=== PATIENT | male | born 1950 | race African-American/Black ===

== ENCOUNTER → 2017-05-31 | Outpatient (CLI) | payer BC ==
[~2017-05-31] MED LIST: ALFU1TAB2 PO; ALLO100T PO; ATOR10TA88 PO; HYDR25TA4 PO; LISI40TA PO; NXM/40 PO; OLOP0.6S NAE; OMEG12006 PO; ranitidine PO
[2017-05-31 12:16] LABS: BASO % 0.5 %; BASO ABS # 0.03 K/uL (0-0.2); COMPLETE YES; EOS % 2.3 %; HEMATOCRIT 36.4 % (42-52); IG% 0.2 %; LYMPH % 29.6 %; LYMPH ABS # 1.66 K/uL (1.2-3.4); MEAN CELL VOLUME 81.4 fL (80-100); MEAN CORPUSCULAR HEMOGLOBIN 27.5 pg (25-34); MEAN CORPUSCULAR HGB CONC 33.8 g/dl (32-36); MEAN PLATELET VOLUME 10.9 fL (7.4-10.4); MONO % 6.4 %; PLATELET COUNT 182 K/uL (130-400); RED BLOOD COUNT 4.47 M/uL (4.7-6.1)
[2017-05-31 12:43] LABS: ALT/SGPT 27 U/L (12-78); AST/SGOT 22 U/L (15-37); BLOOD UREA NITROGEN 27 mg/dl (7-18); BUN/CREATININE RATIO 14.1 (10-20); CALCIUM 9.4 mg/dl (8.5-10.1); CARBON DIOXIDE 28 mmol/L (21-32); CHLORIDE 104 mmol/L (98-107); GLUCOSE 86 mg/dl (70-99); POTASSIUM 3.7 mmol/L (3.5-5.1); SODIUM 137 mmol/L (136-145)
[2017-05-31 12:54] LABS: ALB/GLOB RATIO 0.8 (0.9-2); ALKALINE PHOSPHATASE 89 U/L (45-117); CHOLESTEROL 137 mg/dl (0-200); CHOLESTEROL/HDL RATIO 3.3; HDL CHOLESTEROL 42 mg/dl; LDL CHOLESTEROL CALCULATED 72 mg/dl; TRIGLYCERIDES 113 mg/dl (0-150); VERY LOW DENSITY LIPOPROT CALC 23 mg/dl
== END | disposition home or self-care (01) ==
LOC: C.LAB1850 11:04
PROVIDERS: ATTEND Urology
DX: Z00.00 Encounter for general adult medical examination without abnormal findings (principal); D86.9 Sarcoidosis, unspecified; M10.9 Gout, unspecified; D64.9 Anemia, unspecified; I12.9 Hypertensive chronic kidney disease with stage 1 through stage 4 chronic kidney disease, or unspecified chronic kidney disease; N18.9 Chronic kidney disease, unspecified; E55.9 Vitamin D deficiency, unspecified

== ENCOUNTER → 2017-06-23 | Outpatient (CLI) | payer BC | END | disposition home or self-care (01) | LOC: C.LAB1850 16:31 | PROVIDERS: ATTEND Urology | DX: N40.1 Benign prostatic hyperplasia with lower urinary tract symptoms (principal); R35.1 Nocturia ==

== ENCOUNTER 2020-06-12 13:19 | Inpatient (IN) ==
[2020-06-12] MEDS ORDERED: SODIUM CHLORIDE 0.9% 250 ML IV PRN ×4 (14:37→23:43)
--- NOTE | 2020-06-12 14:42 | Emergency Department Note ---
Impression & Plan SOB (shortness of breath), Anemia, Weakness ED Provider Note NAME: ANA ROSA COMER AGE: 70 SEX: M : 1950 ARRIVES VIA: Walk-In INFORMANT: [Patient] ED PROVIDER(S): [Valentino Rodriguez MD] CHIEF COMPLAINT: Weakness, anemia HISTORY OF PRESENT ILLNESS: The patient is a 70-year-old male who has a history of anemia. He has never received a blood transfusion. The reason for the anemia has never been found. He has had bone marrow biopsies, he has had an endoscopy, a colonoscopy and has swallowed a video camera. In the last month, the patient has had increasing fatigue and some shortness of breath. He feels exhausted just taking a shower or walking to his car. He saw his doctor 2 days ago and, blood work was done. He was called and told his hemoglobin was in the range of 6. He was referred to the ED for a blood transfusion. The patient denies chest pain or fever. No abdominal pain. He has not had black stool. He is willing to receive blood if his counts are really that low. REVIEW OF SYSTEMS: See HPI for pertinent positives and negatives. A total of ten systems were reviewed and were otherwise negative. PMHx/PSHx: See Below SOCIAL HISTORY: See Below. PHYSICAL EXAM: GENERAL: Patient is in no acute distress. HEENT: No acute trauma, normocephalic atraumatic, mucous membranes moist, no nasal congestion, no scleral icterus. NECK: No stridor, no adenopathy, no meningismus, trachea is midline. LUNGS: Clear to auscultation bilaterally, no wheeze, no rhonchi, breath sounds equal. HEART: Mildly tachycardic, regular rhythm, no murmurs. ABDOMEN: Soft, nontender, bowel sounds positive, no hernias, no peritonitis. EXTREMITIES: No cyanosis or edema, full range of motion of all the joints without pain or difficulty, no signs for acute trauma. NEUROLOGIC: Oriented x 3, no acute motor or sensory deficits, no focal weakness. SKIN: No rash, no jaundice, no diaphoresis. Rectal: Brown stool, heme-negative. DIFFERENTIAL DIAGNOSIS: Infection, dehydration, metabolic abnormality, hypo/hyperglycemia, electrolyte disturbance, anemia, hypoxia, cardiac sources, intracerebral event, toxicologic, neurologic, as well as other pathologies. EMERGENCY DEPARTMENT COURSE/PROCEDURES: ECG: Indication is weakness. The ECG shows a normal sinus rhythm with a right bundle branch block. The rate is 92. There is no ST elevation, no PVCs. The QTc is 504. Continuous Cardiac Monitoring: An order was placed for continuous cardiac monitoring. The monitor shows a rate of 88 with normal sinus rhythm. Critical Care Note: I have personally spent greater than 36 minutes of critical care time in the direct management of this patient. This includes bedside care, interpretation of diagnostic studies, and testing, discussion with consultants, patient, and family members, and other required patient management activities. This 36 minutes is in excess of all separately billable procedures. MEDICAL DECISION MAKING: There is a lower white blood cell count, this has been a chronic issue though for the patient. Hemoglobin was quite low at 6.4, this is lower than he has really ever been. There was a normal platelet count. Renal panel testing shows some renal insufficiency with a creatinine of 2.15. This is slightly above the patient's baseline. No significant electrolyte abnormality in need of emergent correction. No worrisome liver enzyme elevation. Urinalysis does not show infection. Chest film does not show pneumonia or CHF. ECG shows a sinus rhythm, no acute ischemia. Cardiac enzyme testing x1 is not consistent with acute cardiac injury. Rectal exam done at bedside showed brown stool, the stool was heme-negative. Patient presents with fatigue and shortness of breath. He is quite anemic. He needs packed red blood cells and has agreed to the blood transfusion. The paperwork was completed and signed. I did order for 2 units of packed red blood cells, 1 unit to be infused while here in the ED. I spoke to the patient about his findings. I spoke with case management. The on-call hospitalist was consulted. The cause for his anemia is not clear. During the ED stay, in addition to the packed red blood cells, the patient was given a 500 cc saline bolus. Past Med/Surg History Medical History Anemia Right bundle branch block Sarcoidosis Surgical History H/O colonoscopy S/P foot surgery, right Family History Mother Heart disease Hypertension Nephrolithiasis Father Heart disease Hypertension Other Anemia Denies family history of Colon cancer Ovarian cancer Prostate cancer Myocardial infarction Breast cancer Social History Smoking Status: Never smoker Hx Alcohol Use: No Hx Substance Use: No Preferred Language: Setswana Associate Principal Required: No Beliefs That Will Affect Care: None marital status: / Current Living Situation: Alone current occupational status: employed current occupation: administrative Other Information That Helps Us Care for You: No Feels Safe at Home: Yes Safety Concerns: Feels Safe At This Time Childhood Exposure to Second-Hand Smoke: Yes Dental Care, Regularly: Yes Allergies Allergies Allergy/AdvReac Type Severity Reaction Status Date / Time tramadol AdvReac Unknown severe Verified 04/09/20 08:52 headache Home Meds Home Medications Medication Instructions Recorded Confirmed allopurinol 100 mg tablet 100 mg PO DAILY #30 tab 03/19/19 04/29/20 cholecalciferol (vitamin D3) 25 1,000 units PO DAILY cap 03/19/19 04/29/20 mcg (1,000 unit) capsule diclofenac sodium 1 % topical gel TOPICAL .apply 4 grams up to #1 gm 04/15/19 04/29/20 azathioprine 50 mg tablet 50 mg PO BID tab 03/11/20 04/29/20 Previous Rx's Medication Instructions Recorded infliximab 100 mg intravenous See Rx Instructions IV .COMPLEX #1 03/19/19 solution ea multivitamin 1 tab PO DAILY #30 tab 03/19/19 omega-3 fatty acids 1,000 mg 1,000 mg PO DAILY #30 cap 03/19/19 capsule sildenafil 50 mg tablet 50 mg PO DAILY PRN #7 tab 03/19/19 vitamin B complex 1 tab PO DAILY #30 tab 03/19/19 hydrochlorothiazide 12.5 mg capsule 25 mg PO DAILY #60 cap 04/22/19 alfuzosin 10 mg tablet,extended 10 mg PO .COMPLEX #90 tab 09/18/19 release 24 hr olopatadine 0.6 % nasal spray 2 sprays INTNAS DAILY #30.5 gm 02/19/20 gabapentin 100 mg capsule 100 mg PO TID #90 cap 03/11/20 atorvastatin 10 mg tablet 10 mg PO DAILY #30 tab 03/16/20 Results & Data (ED) Vital Signs Vital Signs - 24 hr 06/12/20 13:49 06/12/20 14:51 06/12/20 14:52 Temperature 37.3 C Temperature Source Oral Pulse Rate 97 H 89 Pulse Rate [Apical] 95 H Pulse Rate from SpO2 Sensor 89 Respiratory Rate 17 20 21 Respiratory Effort / Characteristics Non-Labored Spontaneous Respiratory Depth Normal Respiratory Pattern Regular Blood Pressure 119/65 140/68 Blood Pressure [Left Arm] 140/68 Blood Pressure Mean 83 96 Blood Pressure Mean [Left Arm] 92 Blood Pressure Position Sitting Pulse Oximetry 100 100 96 Oxygen Delivery Method Room Air Room Air Sepsis Recent Fever Within 48 Hours No Sepsis New/Unexplained Change in Mental Status No Sepsis Action Taken by Nursing No Action Required 06/12/20 15:11 06/12/20 15:30 Temperature Temperature Source Pulse Rate 87 90 Pulse Rate [Apical] Pulse Rate from SpO2 Sensor 88 Respiratory Rate 20 24 Respiratory Effort / Characteristics Respiratory Depth Respiratory Pattern Blood Pressure Blood Pressure [Left Arm] Blood Pressure Mean Blood Pressure Mean [Left Arm] Blood Pressure Position Pulse Oximetry 95 98 Oxygen Delivery Method Sepsis Recent Fever Within 48 Hours Sepsis New/Unexplained Change in Mental Status Sepsis Action Taken by Longterm Medications Current Medication List: was personally reviewed by me Laboratory Data Attestation: I reviewed the patient's lab results. Result diagrams: 06/12/20 14:44 06/12/20 14:44 Lab Results 06/12/20 06/12/20 06/12/20 Range/Units 14:44 14:44 14:44 WBC 2.54 L (4.8-10.8) K/uL RBC 1.91 L (4.7-6.1) M/uL Hgb 6.4 L* (14.0-18.0) g/dL Hct 18.3 L* (42-52) % MCV 95.8 (80-100) fL MCH 33.5 (25-34) pg MCHC 35.0 (32-36) g/dL RDW Std Deviation 59.6 H (36.4-46.3) fL RDW Coeff of Nilam 17.2 H (11.5-14.5) % Plt Count 241 (130-400) K/uL MPV 9.2 (7.4-10.4) fL Reticulocyte % (Auto) < 0.5 L (0.5-2.0) % Reticulocyte # < 0.02 L (0.02-0.10) 10^6/uL Neutrophils % (Manual) 80.9 % Lymphocytes % (Manual) 13.9 % Monocytes % (Manual) 2.6 % Eosinophils % (Manual) 2.6 % Neutrophils # (Manual) 2.05 (1.4-6.5) K/uL Total Absolute Neuts 2.05 (1.4-6.5) K/uL Lymphocytes # (Manual) 0.35 L (1.2-3.4) K/uL Total Abs Lymphocytes 0.35 L (1.2-3.4) K/uL Monocytes # (Manual) 0.07 L (0.11-0.59) K/uL Eosinophils # (Manual) 0.07 (0-0.5) K/uL Dohle Bodies 1+ Giant Platelets 1+ Target Cells 1+ Tear Drop Cells 1+ Ovalocytes 1+ Peripher Smr Path Cons Immature Retic Fraction 9.1 (2.3-13.4) % Retic Hgb Content 29.3 (28.2-36.6) pg Sodium 135 L (136-145) mmol/L Potassium 3.8 (3.5-5.1) mmol/L Chloride 103 (98-107) mmol/L Carbon Dioxide 23 (21-32) mmol/L Anion Gap 10.0 (3-11) BUN 32 H (7-18) mg/dl Creatinine 2.15 H (0.6-1.4) mg/dl Est Cr Clr Drug Dosing 40.5 ml/min Est GFR ( Amer) 34.6 Est GFR (Non-Af Amer) 29.9 BUN/Creatinine Ratio 14.9 (10-20) Glucose 90 (70-99) mg/dl Calcium 9.9 (8.5-10.1) mg/dl Magnesium 1.9 (1.8-2.4) mg/dl Iron (35-175) mcg/dl Transferrin (200-360) mg/dl Transferrin % Sat (20-50) % Total Bilirubin 0.8 (0.2-1) mg/dl AST 15 (15-37) U/L ALT 16 (12-78) U/L Alkaline Phosphatase 84 (45-117) U/L Lactate Dehydrogenase (87-241) U/L Troponin I < 0.015 (0-0.045) ng/ml C-Reactive Protein (0-0.29) mg/dl Total Protein 9.1 H (6.4-8.2) gm/dl Albumin 3.9 (3.4-5.0) gm/dl Globulin 5.2 H (2.5-4.0) gm/dl Albumin/Globulin Ratio 0.8 L (0.9-2) TSH 1.210 (0.300-4.500) uIu/ml Blood Type A Negative Blood Type Recheck Antibody Screen NEGATIVE Crossmatch See Detail 06/12/20 06/12/20 06/12/20 Range/Units 14:44 14:44 15:22 WBC (4.8-10.8) K/uL RBC (4.7-6.1) M/uL Hgb (14.0-18.0) g/dL Hct (42-52) % MCV (80-100) fL MCH (25-34) pg MCHC (32-36) g/dL RDW Std Deviation (36.4-46.3) fL RDW Coeff of Nilam (11.5-14.5) % Plt Count (130-400) K/uL MPV (7.4-10.4) fL Reticulocyte % (Auto) (0.5-2.0) % Reticulocyte # (0.02-0.10) 10^6/uL Neutrophils % (Manual) % Lymphocytes % (Manual) % Monocytes % (Manual) % Eosinophils % (Manual) % Neutrophils # (Manual) (1.4-6.5) K/uL Total Absolute Neuts (1.4-6.5) K/uL Lymphocytes # (Manual) (1.2-3.4) K/uL Total Abs Lymphocytes (1.2-3.4) K/uL Monocytes # (Manual) (0.11-0.59) K/uL Eosinophils # (Manual) (0-0.5) K/uL Dohle Bodies Giant Platelets Target Cells Tear Drop Cells Ovalocytes Peripher Smr Path Cons Immature Retic Fraction (2.3-13.4) % Retic Hgb Content (28.2-36.6) pg Sodium (136-145) mmol/L Potassium (3.5-5.1) mmol/L Chloride (98-107) mmol/L Carbon Dioxide (21-32) mmol/L Anion Gap (3-11) BUN (7-18) mg/dl Creatinine (0.6-1.4) mg/dl Est Cr Clr Drug Dosing ml/min Est GFR ( Amer) Est GFR (Non-Af Amer) BUN/Creatinine Ratio (10-20) Glucose (70-99) mg/dl Calcium (8.5-10.1) mg/dl Magnesium (1.8-2.4) mg/dl Iron 145 (35-175) mcg/dl Transferrin 246 (200-360) mg/dl Transferrin % Sat 42 (20-50) % Total Bilirubin (0.2-1) mg/dl AST (15-37) U/L ALT (12-78) U/L Alkaline Phosphatase (45-117) U/L Lactate Dehydrogenase 246 H (87-241) U/L Troponin I (0-0.045) ng/ml C-Reactive Protein 1.65 H (0-0.29) mg/dl Total Protein (6.4-8.2) gm/dl Albumin (3.4-5.0) gm/dl Globulin (2.5-4.0) gm/dl Albumin/Globulin Ratio (0.9-2) TSH (0.300-4.500) uIu/ml Blood Type Blood Type Recheck A Negative Antibody Screen Crossmatch Administered Medications Discontinued Medications Sodium Chloride (Nss) 500 mls @ 999 mls/hr IV .Q31M MARY Stop: 06/12/20 15:15 Last Infusion: 06/12/20 15:39 Dose: 0 mls/hr Documented by: [id number] Admin: 06/12/20 14:53 Dose: 999 mls/hr Documented by: [id number] Imaging Data Radiologist's Impression: XR chest 1V portable CLINICAL HISTORY: weakness COMPARISON STUDY: 12/02/2010 FINDINGS: The heart is at the upper limits of normal in size. There is stable bilateral hilar prominence. There is stable upper lung zone fibronodular opacities. There is no acute parenchymal consolidation. There are no pleural e ffusions.[ IMPRESSION: Stable hilar enlargement and upper lung zone predominant fibronodular opacities. No acute findings. Blood Pressure Blood Pressure Findings: Elevated blood pressure Blood Pressure Disposition: further management by hospitalist Discharge Plan Visit Data Chief Complaint: Abnormal Labs/Diagnostic Testing Stated Complaint: REF BY [facility] ED Provider: Valentino Rodriguez Discharge Problem: SOB (shortness of breath), Anemia, Weakness Patient Disposition: Admitted As Inpatient Condition: Good Discharge Instructions Interventions: ED Discharge Assessment Last Done: 06/12/20 16:58 Discharge Problem: Anemia Qualifiers: Anemia type: unspecified type Qualified Code(s): D64.9 - Anemia, unspecified
[2020-06-12] MEDS ORDERED: SODIUM CHLORIDE 0.9% 500 ML IV SCH (14:45)
[2020-06-12 15:16] LABS: Alanine Aminotransferase 16 U/L (12-78); Albumin Level 3.9 gm/dl (3.4-5.0); Aspartate Aminotransferase 15 U/L (15-37); BUN Creatinine Ratio 14.9 (10-20); Blood Urea Nitrogen 32 mg/dl (7-18); Calcium 9.9 mg/dl (8.5-10.1); Carbon Dioxide 23 mmol/L (21-32); Chloride 103 mmol/L (98-107); Creatinine Clr Calc Pharmacy 40.5 ml/min; Est GFR (African American) 34.6; Est GFR (Non-African American) 29.9; Glucose 90 mg/dl (70-99); Hematocrit (blood only) 18.3 % (42-52); Hemoglobin 6.4 g/dL (14.0-18.0); Magnesium 1.9 mg/dl (1.8-2.4); Mean Corpuscular Hemoglobin 33.5 pg (25-34); Mean Corpuscular Volume 95.8 fL (80-100); Mean Platelet Volume 9.2 fL (7.4-10.4); Platelet Count 241 K/uL (130-400); Potassium 3.8 mmol/L (3.5-5.1); RDW Coefficient of Variation 17.2 % (11.5-14.5); RDW Standard Deviation 59.6 fL (36.4-46.3); Red Blood Count 1.91 M/uL (4.7-6.1); Sodium 135 mmol/L (136-145); White Blood Count 2.54 K/uL (4.8-10.8)
--- NOTE | 2020-06-12 15:21 | XRay Report ---
XR chest 1V portable CLINICAL HISTORY: weakness COMPARISON STUDY: 12/02/2010 FINDINGS: The heart is at the upper limits of normal in size. There is stable bilateral hilar promine nce. There is stable upper lung zone fibronodular opacities. There is no acute parenchymal consolidat ion. There are no pleural effusions.[ IMPRESSION: Stable hilar enlargement and upper lung zone predominant fibronodular opacities. No acute findings. ACT 112: Negative or not required by law. Electronically signed by: Gavin Valerio M.D. 06/12/2020 3:20 PM
[2020-06-12 15:27] LABS: Albumin Globulin Ratio 0.8 (0.9-2); Alkaline Phosphatase 84 U/L (45-117); Bilirubin,Total 0.8 mg/dl (0.2-1); Globulin 5.2 gm/dl (2.5-4.0); Total Protein 9.1 gm/dl (6.4-8.2); Troponin I < 0.015 ng/ml (0-0.045)
[2020-06-12 15:37] LABS: ALC (manual) 0.35 K/uL (1.2-3.4); ANC (manual) 2.05 K/uL (1.4-6.5); Dohle Bodies 1+; Eosinophils # (manual) 0.07 K/uL (0-0.5); Eosinophils % (manual) 2.6 %; Giant Platelets 1+; Lymphocytes # (manual) 0.35 K/uL (1.2-3.4); Lymphocytes % (manual) 13.9 %; Monocytes # (manual) 0.07 K/uL (0.11-0.59); Monocytes % (manual) 2.6 %; Neutrophils # (manual) 2.05 K/uL (1.4-6.5); Neutrophils % (manual) 80.9 %; Ovalocytes 1+; Target Cells 1+; Tear Drop Cells 1+
--- NOTE | 2020-06-12 15:56 | History & Physical Report ---
Date of Service June 12, 2020 Assessment & Plan (1) Symptomatic anemia: Previously extensively worked up including bone marrow biopsy under Dr Fraser. Normal EGD/colonoscopy/capsule endoscopy. Only recent change in medication has been adding vitamin D and potassium 3 months previously - no significant change in his calcium due to this with his sarcoidosis. No change in his allopurinol + azathioprine from Oct 2018 however would still favor this this combination causing bone marrow suppression since his reticulocyte count is so low. Hold azathioprine pending heme consult. Given his worsening creatinine without any specific etiology for his CKD and elevated total serum protein will run SPEP/UPEP/FLC/Immunofixation for myeloma workup. Transfuse 1 unit PRBC and repeat CBC - delayed getting transfusion as requires to be washed due to selective IgA def. Consult hematology. 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 (8) Gout: Questionable one off episode of this in 2010 after orthopedic surgery to the same area. No joint fluid confirmation as per patient recollection. On allopurinol since then. (9) Benign prostatic hyperplasia: PCP follow up. Admission and Anticipated Discharge Date Admission Date: 06/12/2020 History of Present Illness Chief Complaint: Symptomatic anemia Primary Care Provider: Stephan Small DO Sriram Lau is a 70 year old male who presents to the ER with progressively increasing shortness of breath and fatigue increasing over the last month. He saw his PCP 2 days previously and performed outpatient labs showing Hgb 6.4 today. Therefore referred to the ER for further workup. He reports no acute change in his symptoms over the last week. No chest pain, melena, bright red blood in stool. Prior workup under Dr Fraser for his anemia including EGD, colonoscopy, capsule endoscopy, bone marrow biopsy without a specific diagnosis. His anemia spontaneously improved without a blood transfusion although it has never been this low. His reticulocyte count was low previously and he takes azathioprine and allopurinol however his intermittent anemia started prior to him starting the azathioprine. 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 Recent change burst of gabapentin for right sided ulnar neuropathy at this elbow which did not help - plans to follow up with orthopedics regarding this. No known interaction with azathioprine. He was also recently started on Vitamin D and potassium for the last 3 months. He has an selective IgA deficiency therefore requires washed packed RBC transfusion. Allergies Allergy/AdvReac Type Severity Reaction Status Date / Time tramadol AdvReac Unknown severe Verified 04/09/20 08:52 headache Home Medications Home Medications Medication Instructions Recorded Confirmed Type allopurinol 100 mg tablet 100 mg PO DAILY #30 tab 03/19/19 04/29/20 History cholecalciferol (vitamin D3) 25 1,000 units PO DAILY cap 03/19/19 04/29/20 History mcg (1,000 unit) capsule infliximab 100 mg intravenous See Rx Instructions IV .COMPLEX #1 03/19/19 04/29/20 Rx solution ea multivitamin 1 tab PO DAILY #30 tab 03/19/19 04/29/20 Rx omega-3 fatty acids 1,000 mg 1,000 mg PO DAILY #30 cap 03/19/19 04/29/20 Rx capsule sildenafil 50 mg tablet 50 mg PO DAILY PRN #7 tab 03/19/19 04/29/20 Rx vitamin B complex 1 tab PO DAILY #30 tab 03/19/19 04/29/20 Rx diclofenac sodium 1 % topical gel TOPICAL .apply 4 grams up to #1 gm 04/15/19 04/29/20 History hydrochlorothiazide 12.5 mg capsule 25 mg PO DAILY #60 cap 04/22/19 04/29/20 Rx alfuzosin 10 mg tablet,extended 10 mg PO .COMPLEX #90 tab 09/18/19 04/29/20 Rx release 24 hr olopatadine 0.6 % nasal spray 2 sprays INTNAS DAILY #30.5 gm 02/19/20 04/29/20 Rx azathioprine 50 mg tablet 50 mg PO BID tab 03/11/20 04/29/20 History atorvastatin 10 mg tablet 10 mg PO DAILY #30 tab 03/16/20 04/29/20 Rx amlodipine [Norvasc] 5 mg PO QAM #30 tab 06/13/20 Rx lisinopril [Zestril] 40 mg PO QAM #30 tab 06/13/20 Rx potassium chloride [Klor-Con M10] 10 meq PO DAILY #30 tab 06/13/20 Rx Past Med/Surg History Medical History Anemia Right bundle branch block Sarcoidosis Surgical History H/O colonoscopy S/P foot surgery, right Family History Mother Heart disease Hypertension Nephrolithiasis Father Heart disease Hypertension Other Anemia Denies family history of Colon cancer Ovarian cancer Prostate cancer Myocardial infarction Breast cancer Social History Smoking Status: Never smoker Hx Alcohol Use: No Hx Substance Use: No Preferred Language: Peruvian Pediatric Medical Assistant Required: No Beliefs That Will Affect Care: None marital status: / Current Living Situation: Alone current occupational status: employed current occupation: administrative Other Information That Helps Us Care for You: No Feels Safe at Home: Yes Safety Concerns: Feels Safe At This Time Childhood Exposure to Second-Hand Smoke: Yes Dental Care, Regularly: Yes Review of Systems Review of Systems: All systems reviewed & are unremarkable except as noted in HPI & below Musculoskeletal: notied increasing ulnar neuropathy on right arm likely related to Physical Exam Constitutional: WD/WN, vitals as above + obese Eyes: PERRL, conjunctivae normal, anicteric sclerae ENMT: external ear and nose normal, oropharynx normal Neck: trachea midline, no thyromegaly Respiratory: normal respiratory effort, lungs clear to auscultation Cardiovascular: RRR, no murmur, no edema Gastrointestinal (Abdomen): normal bowel sounds, soft, nontender, no hepatosplenomegaly Musculoskeletal: no cyanosis or clubbing, extremities motor strength 5/5 Positive tinel test on right side Skin: no rashes, warm and dry Neurologic: moves all extremities and awake; no focal motor deficits and not confused Psychiatric: A+Ox3, euthymic affect Genitourinary: no CVA tenderness Lymphatic: no cervical or axillary lymphadenopathy Results & Data Results & Data ([facility]) Vital Signs (Past 12 Hours) Vital Signs Temp Pulse Pulse Resp BP BP Pulse Ox 06/12/20 14:51 95 H 20 140/68 100 06/12/20 13:49 37.3 C 97 H 17 119/65 100 Diagnostic Findings XR chest 1V portable IMPRESSION: Stable hilar enlargement and upper lung zone predominant fibronodular opacities. No acute findings. ECG Rate (beats per minute): 92 Rhythm: normal sinus Findings: + RBBB (not new) Comparison ECG Date: from (March 18, 2003) Change: no significant change Code Status & VTE Plan VTE Prophylaxis Plan VTE Prophylaxis will be ordered: Yes PG Care Time/CCT Total # of Minutes Spent Total Time Spent: 85 Total Time Spent with Patient: Total time spent is greater than 50% in coordination of care (as documented) at patient's floor/unit and/or counseling patient: Coding Level of Care Code 84826 Initial Inpt Care Lvl 3 Diagnoses Symptomatic anemia D64.9 Sarcoidosis D86.9 Right bundle branch block I45.10 Elevated serum protein level R77.9 IgA deficiency, selective D80.2 Gastroesophageal reflux disease K21.9 Ulnar nerve entrapment at elbow G56.20 Gout M10.9 Benign prostatic hyperplasia N40.0
[2020-06-12 16:10] LABS: Immature Retic Fraction 9.1 % (2.3-13.4); Reticulated Hemoglobin 29.3 pg (28.2-36.6); Reticulocyte % < 0.5 % (0.5-2.0); Reticulocytes # < 0.02 10^6/uL (0.02-0.10)
[2020-06-12 16:33] LABS: C Reactive Protein 1.65 mg/dl (0-0.29)
[2020-06-12 16:50] LABS: Appearance Urine Clear (Clear); Bilirubin Urine Negative (Negative); Blood Urine Negative (Negative); Color Urine Yellow; Glucose Urine UA Negative (Negative); Ketones Urine Negative (Negative); Leukocyte Esterase Urine Negative (Negative); Nitrite Urine Negative (Negative); Protein Urine Negative (Negative); Specific Gravity Urine 1.011 (1.000-1.030); Urobilinogen Urine Negative (Negative); pH Urine 5.5 (4.5-7.5)
[2020-06-12 17:03] LABS: Folate (Folic Acid) 11.53 ng/ml (>5.38)
[2020-06-12 19:43] LABS: Creatinine Urine Random 85.2 mg/dl; Protein Creatinine Ratio Urine 0.2 (0-0.2); Total Protein Urine Random 13.4 mg/dl (0-11.9)
[2020-06-12] MEDS ORDERED: azaTHIOprine 50 MG TAB PO SCH (21:00)
[2020-06-12] MEDS ORDERED: ATORVASTATIN 10 MG TAB PO SCH (21:00)
[2020-06-12] MEDS ORDERED: GABAPENTIN 100 MG CAP PO SCH (21:00)
[2020-06-12] MEDS: DICLOFENAC SOD 1% GEL 100 GM TUBE EXT SCH (21:39)
[2020-06-13 07:45] LABS: Hematocrit (blood only) 18.7 % (42-52); Hemoglobin 6.5 g/dL (14.0-18.0); Mean Corpuscular Hemoglobin 32.2 pg (25-34); Mean Corpuscular Hgb Conc 34.8 g/dL (32-36); Mean Corpuscular Volume 92.6 fL (80-100); Mean Platelet Volume 8.4 fL (7.4-10.4); Platelet Count 198 K/uL (130-400); RDW Coefficient of Variation 17.3 % (11.5-14.5); RDW Standard Deviation 58.7 fL (36.4-46.3); Red Blood Count 2.02 M/uL (4.7-6.1); White Blood Count 2.32 K/uL (4.8-10.8)
[2020-06-13] MEDS: DICLOFENAC SOD 1% GEL 100 GM TUBE EXT SCH ×2 (08:05→13:03)
[2020-06-13 08:10] LABS: Albumin Level 3.3 gm/dl (3.4-5.0); BUN Creatinine Ratio 16.5 (10-20); Calcium 9.3 mg/dl (8.5-10.1); Creatinine Clr Calc Pharmacy 45.3 ml/min; Est GFR (Non-African American) 34.5; Potassium 3.6 mmol/L (3.5-5.1)
[2020-06-13 08:13] LABS: Albumin Globulin Ratio 0.8 (0.9-2); Basophils # (auto) 0.01 K/uL (0-0.2); Basophils % (auto) 0.4 %; Bilirubin,Total 0.9 mg/dl (0.2-1); Eosinophils # (auto) 0.05 K/uL (0-0.5); Eosinophils % (auto) 2.2 %; Globulin 4.4 gm/dl (2.5-4.0); Immature Granulocytes # (auto) 0.01 K/uL (0.00-0.02); Immature Granulocytes % (auto) 0.4 %; Lymphocytes # (auto) 0.83 K/uL (1.2-3.4); Lymphocytes % (auto) 35.8 %; Monocytes % (auto) 8.6 %; Neutrophils # (auto) 1.22 K/uL (1.4-6.5); Neutrophils % (auto) 52.6 %; Ovalocytes 2+; Total Protein 7.7 gm/dl (6.4-8.2)
[2020-06-13] MEDS ORDERED: hydroCHLOROthiazide 25 MG TAB PO SCH (09:00)
[2020-06-13] MEDS ORDERED: VITAMIN B COMPLEX TAB PO SCH (09:00)
[2020-06-13] MEDS ORDERED: ATORVASTATIN 10 MG TAB PO SCH (09:00)
[2020-06-13] MEDS ORDERED: allopurinoL 100 MG TAB PO SCH (09:00)
[2020-06-13] MEDS ORDERED: CHOLECALCIFEROL 1,000 UNITS 25 MCG TAB PO SCH (09:00)
[2020-06-13] MEDS ORDERED: MULTIVITAMIN TAB PO SCH (09:00)
[2020-06-13] MEDS ORDERED: OMEGA-3 (PURIFIED FISH OIL) 1 GM CAP PO SCH (09:00)
--- NOTE | 2020-06-13 10:15 | Consultation Report ---
DATE OF CONSULTATION: 06/13/2020 REASON FOR CONSULTATION: A 70-year-old -[place] gentleman with hypoproliferative anemia. HISTORY OF PRESENT ILLNESS: The patient is a very pleasant 70-year-old -[place] gentleman well known to [facility], previous patient of Dr. Girish Fraser'john for management of a hypoproliferative anemia. This gentleman has been struggling with anemia for several years. He suffers from sarcoidosis and is currently on immune mediating agents. He has had an interesting fluctuations in his hemoglobin with no evidence of active bleeding. He underwent complete scoping procedures back in early 2019, which included the camera endoscopy, none of which revealed a direct source of bleeding. This gentleman also suffers from chronic renal insufficiency. He was summoned to [facility] when his hemoglobin was found to be 6.5 grams per deciliter. He was transfused 1 unit of packed RBCs thus far. He last saw our physician web administrator in mid March, who recommended continued observation. For reasons unclear, this gentleman has never been offered Procrit and clearly he suffers from a hypoproliferative anemia as documented by bone marrow biopsy and aspiration. It was done earlier this year. There was no evidence of myelodysplasia seen at that time. The patient continues to struggle with decreased exercise tolerance and fatigue. He is clinically feeling better after the unit of blood. Engaged in discussion regarding the utility of supplemental erythropoietin moving forward. PAST MEDICAL HISTORY: Significant for sarcoidosis, right bundle branch block and chronic hypoproliferative anemia. PAST SURGICAL HISTORY: Includes panendoscopy and right foot surgery. MEDICATIONS: Include atorvastatin 10 mg p.o. daily, azathioprine 50 mg p.o. b.i.d., alfuzosin 10 mg p.o. daily, hydrochlorothiazide 25 mg p.o. daily, diclofenac sodium topical gel applied p.r.n., vitamin B complex 1 tablet p.o. daily, Viagra 50 mg p.o. daily, omega 3 fish oil 1000 mg p.o. daily, multivitamin 1 tablet p.o. daily, INFLIXIMAB, he also receives periodically I do not actually have his schedule. Cholecalciferol 1000 units p.o. daily, allopurinol 10 mg p.o. every day. ALLERGIES: TRAMADOL. SOCIAL HISTORY: Works at [employer]. He is a . He is a nonsmoker, nondrinker. FAMILY HISTORY: Mother suffered from heart disease, hypertension, and nephrolithiasis. Father also suffered from heart disease and hypertension. No history of neoplasia within first degree family relatives. REVIEW OF SYSTEMS: CONSTITUTIONAL: As per HPI, most notably for fatigue and decreased exercise tolerance, brought on by progressive anemia. No fevers, chills or sweats. He is not anorexic or losing weight. SKIN: No rashes or lesions. No history of dermatoses. HEENT: Negative for headaches, lightheadedness or dizziness. No acute visual or hearing deficits. No sinus symptoms, sore throat or dysphagia. LYMPH: No history of lymphoproliferative disease. CARDIAC: No history of coronary artery disease; however, he has a history of right bundle branch block. No current angina or palpitations. PULMONARY: Positive history of sarcoidosis. He is not acutely short of breath or dyspneic on exertion. GASTROINTESTINAL: Negative for abdominal pain, nausea, vomiting, diarrhea or constipation, hematochezia, melena stools or matthew rectal bleeding. GENITOURINARY: No hematuria, dysuria, urinary incontinence. PSYCHIATRIC: Negative for anxiety, depression or psychoses. MUSCULOSKELETAL: Negative for focal muscle weakness. No skeletal pain. NEUROLOGIC: Negative for seizure, stroke, or migraine headache. HEMATOLOGIC: Positive for progressive normocytic normochromic anemia. Positive for leukopenia as well. PHYSICAL EXAMINATION: GENERAL: A very pleasant, conversant 70-year-old -[place] gentleman in no acute distress. VITAL SIGNS: Temperature 37.1, pulse 74, respiratory rate 18, blood pressure 118/61. SKIN: Warm, dry, noncyanotic without petechia, rash or ecchymosis. HEENT: Head is atraumatic, normocephalic. Eyes: PERRLA, EOMI. Nares are patent without rhinorrhea or discharge. Throat is clear. Tongue midline. Mucous membranes are moist. NECK: Supple without JVD or thyromegaly. HEART: Regular rate and rhythm. No clicks, rubs, murmurs or gallops. LUNGS: Clear to auscultation bilaterally. ABDOMEN: Soft, nontender, nondistended, without palpable hepatosplenomegaly. EXTREMITIES: No calf tenderness or swelling. No clubbing, cyanosis or edema. NEUROLOGICALLY: He is awake, alert and oriented x3. Cranial nerves are grossly intact. LABORATORY DATA: WBC count 2320, hemoglobin 6.5, platelet count 198,000. Reticulocyte count very low 0.2%, absolute neutrophils 1200. Sodium 136, potassium 3.6, chloride 104, carbon dioxide 25, creatinine 1.91, BUN 32, albumin 3.3. IMPRESSION: 1. Hypoproliferative progressive anemia. 2. Sarcoidosis by history. 3. Decreased exercise tolerance and fatigue. 4. Hypertension. PLAN: It was my pleasure to meet with the patient today representing my first encounter as he was Dr. Fraser's patient moving forward. He underwent complete workup including bone marrow biopsy and aspiration, which showed no evidence of myelodysplasia. His iron stores were decreased and has been supplemented orally. His current iron studies are satisfactory. I agree with SPEP with immunofixation for -[place] gentleman, very high risk for an underlying plasma cell dyscrasia. That said, he also suffers from renal insufficiency and unclear why Dr. Fraser never offered him erythropoietin. Thus, my recommendation moving forward is to administer 40,000 units subQ today. We will make arrangements for him to continue his outpatient for the next couple of months, which will require him to have a CBC drawn and hemoglobin less than 11. He will receive Procrit. Therapeutic goal is to administer least amount of Procrit. Maintain hemoglobin in the 10-11 gram per deciliter range. Discussed risks versus benefits including the impact on blood pressure. Erythropoietin also carries a very slight stroke/thrombotic risk. The patient is amenable to receiving Procrit while in house. Once he is medically stable, could be discharged home with expedient follow up with Anupama De La Cruz, to continue Procrit. If there are any questions or concerns, feel free to contact me at any time. Thank you very much for allowing me to participate in his care.
[2020-06-13] MEDS ORDERED: EPOETIN ALFA 40,000 UNITS/ML VIAL SQ ONE (15:15)
[2020-06-13] MEDS ORDERED: MAGNESIUM HYDROXIDE SUSP 30 ML UDC PO PRN (15:15)
[2020-06-13] MEDS ORDERED: MAGNESIUM HYDROXIDE SUSP 30 ML UDC PO ONE (15:15)
--- NOTE | 2020-06-13 15:58 | Discharge Summary ---
Date of Service June 13, 2020 Principal Diagnosis Pt states he feels better than he has in a few weeks. He has been ambulating around his room without issue. Nursing walked with pt around floor and no issues. No SOB. Pt states that prior to COVID he was working out in the gym 3- 4x/week, plus walking around campus as part of his daily routine at work. Since COVID restrictions were put in place pt has not been able to go to the gym and he is working from home. He feels that his exercise tolerance is much lower than it had been. He has been tolerating PO without issue. He was a bit constipated today and asked for something for this. Pt denies fever, chest pain, abd pain, n/v, LE pain or swelling. Pt states he lives by himself but "many, many people check on me". He is also working from home and has Zoom meetings, etc with his workplace. Discharge Exam Constitutional WD/WN, vitals as above Eyes normal visual garcia by confrontation and + anicteric sclerae Neck normal visual inspection and trachea midline Respiratory normal respiratory effort, lungs clear to auscultation Cardiovascular Rate/Rhythm: regular rate and regular rhythm Gastrointestinal (Abdomen) Inspection/Auscultation: abdomen not distended Percussion/Palpation: abdomen soft; abdomen nontender Musculoskeletal Head/Neck/Chest: normocephalic and head atraumatic Skin no rashes, warm and dry Neurologic awake; not confused Speech / Cognition: normal speech Psychiatric A+Ox3, euthymic affect Discharge Data Allergies Allergy/AdvReac Type Severity Reaction Status Date / Time tramadol AdvReac Unknown severe Verified 04/09/20 08:52 headache Consultations 06/12/20 15:31 ED Decision to Admit Stat 06/12/20 17:24 Consult Hematology Routine Hospital Course (1) Symptomatic anemia: Previously extensively worked up including bone marrow biopsy under Dr Fraser. Normal EGD/colonoscopy/capsule endoscopy. Only recent change in medication has been adding vitamin D and potassium 3 months previously - no significant change in his calcium due to this with his sarcoidosis. No change in his allopurinol + azathioprine from Oct 2018 however would still favor this this combination causing bone marrow suppression since his reticulocyte count is so low Given his worsening creatinine without any specific etiology for his CKD and elevated total serum protein will run SPEP/UPEP/FLC/Immunofixation for myeloma workup. Transfuse 1 unit PRBC and repeat CBC - delayed getting transfusion as requires to be washed due to selective IgA def. Repeat Hb stable at 6.5 Cr at 1.9 with baseline 1.5-1.8 B12, folate, TSH WNL Trop WNL Iron 145 UA WNL Elevated lactate dehydrogenase and CRP Dr. Hyde plans to start procrit today and f/u as outpt States that they are fine with d/c with close f/u if pt is feeling improved Planning for f/u appt with CBC on 06/22 Dr. Hyde has arranged for outpt procrit Labs for multiple myeloma work-up pending Pt states he feels the best he has recently Likely baseline deconditioning as well related to COVID. Pt had been working out in the gym 3-4x/week plus walking around campus/buildings for work but has been in his home mostly with remote work and no gym since December. (2) Sarcoidosis: (3) Right bundle branch block: (4) Elevated serum protein level: (5) IgA deficiency, selective: (6) Gout: Questionable one off episode of this in 2010 after orthopedic surgery to the same area. No joint fluid confirmation as per patient recollection. On allopurinol since then. 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: Total Time Total Time Spent Total Time Spent (In Minutes): >30 Total Time Includes: Examination of the Patient, Discharge Planning, Medication Reconciliation, Communication With Other Providers and Other Discharge Plan Discharge Items Patient Disposition: Home - Self-Care Reason For Visit: SYMPTOMATIC ANEMIA Discharge Diagnosis: symptomatic anemia Condition on Discharge: Good Activity: Resume your previous activity Non-emergency contact: Primary Care Provider and Oncologist Call non-emergency contact if: you have any medication questions and your symptoms worsen Follow-up/Referrals: Stephan Small DO [Primary Care Provider] - Anupama Irene PA-C [Nurse Practitioner] - (06/22) Diet: Regular Addtl Attending Provider Instructions: Your blood pressures were towards the lower side at times, even though you were not taking your blood pressure medications during your admission. They are now a bit higher. You should check your blood pressure daily and keep a journal of your readings. If you start to have low blood pressure (less than 110 for the top number), you should discuss with your doctors as you may need your medications lowered. Dr. Hyde is setting up for outpatient Procrit prescription. His office will help you to arrange this. The dosing is not daily like other medications, so you will not need to worry about taking it until you speak with them. You will have your blood counts checked at your appt with Anupama Irene on 06/22. Pending Studies at Discharge: Yes Studies:: send out labs for further work up of anemia Stand-Alone Forms: My [facility] [employer], Smoking Cessation Medications and DC Order Prescriptions: New amlodipine [Norvasc] 5 mg Tablet 5 mg PO QAM Qty: 30 RF: 0 lisinopril [Zestril] 40 mg Tablet 40 mg PO QAM Qty: 30 RF: 0 potassium chloride [Klor-Con M10] 10 mEq Tablet,Er Particles/Crystals 10 meq PO DAILY Qty: 30 RF: 0 Continued alfuzosin 10 mg tablet extended release 24 hr 10 mg PO .COMPLEX Qty: 90 RF: 3 olopatadine 0.6 % spray,non-aerosol 2 sprays INTNAS DAILY Qty: 30.5 RF: 3 atorvastatin 10 mg tablet 10 mg PO DAILY Qty: 30 RF: 5 sildenafil 50 mg tablet 50 mg PO DAILY PRN (Reason: sexual activity) Qty: 7 RF: 3 allopurinol 100 mg tablet 100 mg PO DAILY Qty: 30 RF: 0 cholecalciferol (vitamin D3) 1,000 unit capsule 1,000 units PO DAILY RF: 0 Remicade 100 mg recon soln See Rx Instructions IV .COMPLEX Qty: 1 RF: 0 omega-3 fatty acids [Fish Oil Concentrate] 1,000 mg capsule 1,000 mg PO DAILY Qty: 30 RF: 0 multivitamin tablet 1 tab PO DAILY Qty: 30 RF: 0 vitamin B complex [B Complex-Vitamin B12] tablet 1 tab PO DAILY Qty: 30 RF: 0 diclofenac sodium 1 % gel topical .apply 4 grams up to Qty: 1 RF: 0 hydrochlorothiazide 12.5 mg capsule 25 mg PO DAILY Qty: 60 RF: 2 azathioprine [Imuran] 50 mg tablet 50 mg PO BID RF: 0 Discharge Orders: Discharge Order (Routine); Ordered 06/13/20 Ordered By: La Nena Hurtado Admission Data Admit Date/Time: 06/12/20 15:56 Attending Provider: La Nena Hurtado Admit Provider: Sanchez Vickers Primary Care Provider: Stephan Small Other Providers: Stephan Small ; Sanchez Vickers ; Roly Hyde V. Other Interventions: Discharge Summary Assessment (RN) Last Done: 06/13/20 15:59 Coding Level of Care Code D/C Day Management >30 mins Diagnoses Symptomatic anemia D64.9 Sarcoidosis D86.9 Right bundle branch block I45.10 Elevated serum protein level R77.9 IgA deficiency, selective D80.2 Gout M10.9 Gastroesophageal reflux disease K21.9 Benign prostatic hyperplasia with urinary obstruction N40.1; N13.8 Ulnar nerve entrapment at elbow G56.20
[2020-06-13] MEDS ORDERED: ALFUZOSIN HCL 10 MG TAB PO SCH (16:30)
--- NOTE | 2020-06-14 04:50 | Electrocardiogram Report ---
Test Reason : Blood Pressure : / mmHG Vent. Rate : 092 BPM Atrial Rate : 092 BPM P-R Int : 168 ms QRS Dur : 160 ms QT Int : 408 ms P-R-T Axes : 060 047 033 degrees QTc Int : 504 ms Normal sinus rhythm Right bundle branch block Cannot rule out Inferior infarct (cited on or before 18-MAR-2003) Abnormal ECG When compared with ECG of 18-MAR-2003 16:41, QT has lengthened Confirmed by Hernandez Newell ([id number]) on 06/14/2020 4:49:52 AM Referred By: Confirmed By:Hernandez Newell
[2020-06-14] MEDS ORDERED: POTASSIUM CHLORIDE 10 MEQ TABCR PO SCH (09:00)
[2020-06-14] MEDS ORDERED: AMLODIPINE BESYLATE 5 MG TAB PO SCH (09:00)
[2020-06-14] MEDS ORDERED: lisinopriL 40 MG TAB PO SCH (09:00)
[2020-06-16 13:46] LABS: Erythropoietin 718.8 mIU/mL (2.6-18.5)
[2020-06-16 20:42] LABS: Alpha 1 Globulin 0.4 g/dL (0.2-0.3); Alpha 2 Globulin 0.8 g/dL (0.5-0.9); Beta-1-Globulin 0.4 g/dL (0.4-0.6); Beta-2-Globulin 0.4 g/dL (0.2-0.5); Free Kappa 68.4 mg/L (3.3-19.4); Free Kappa/Lambda Ratio 1.02 (0.26-1.65); Free Lambda 67.1 mg/L (5.7-26.3); Gamma Globulin 2.1 g/dL (0.8-1.7); Monoclonal Protein Band 1 DNR g/dL (NONE DETECTED); Monoclonal Protein Band 2 DNR g/dL (NONE DETECTED); Monoclonal Protein Band 3 DNR g/dL (NONE DETECTED)
[2020-06-17 07:41] LABS: Creatinine Ur 82 mg/dL (20-320); Protein, Urine Random 14 mg/dL (5-25); Ur Protein/Creat Ratio mg/g 171 mg/g creat (22-128); Urine Abnormal Protein Band 1 DNR mg/dL (NONE DETECTED); Urine Abnormal Protein Band 2 DNR mg/dL (NONE DETECTED); Urine Abnormal Protein Band 3 DNR mg/dL (NONE DETECTED); Urine Protein/Creatinine Ratio 0.171 (0.022-0.128)
== END 2020-06-13 16:56 | disposition home or self-care (01) | DRG 810 ==
LOC: ED 13:19 → SUATTDRO 15:56 → 2N 15:56